=== PATIENT | male | born 1985 | race Caucasian/White ===

== ENCOUNTER → 2018-11-27 | Outpatient (CLI) | payer BC, OTHER ==
[~2018-11-27] MED LIST: NORCO 5-325 TA1 EACH PO; SENNA-S TABLET1 EACH PO
== END ==
LOC: RAD 07:52
DX: K44.9 Diaphragmatic hernia without obstruction or gangrene (principal)

== ENCOUNTER → 2020-05-10 | Outpatient (CLI) | payer BC, OTHER | LOC: LAB 08:00 | PROVIDERS: ATTEND Anesthesiology | DX: Z01.812 Encounter for preprocedural laboratory examination (principal); Z11.59 Encounter for screening for other viral diseases ==

== ENCOUNTER → 2020-07-27 | Outpatient (CLI) | payer BC, OTHER | LOC: RAD 08:55 | PROVIDERS: ATTEND Family Medicine | DX: R13.10 Dysphagia, unspecified (principal); K44.9 Diaphragmatic hernia without obstruction or gangrene ==